=== PATIENT | female | born 1955 | race African-American/Black ===

== ENCOUNTER 2018-08-27 01:42 | Emergency (ER) | payer SELFPAY ==
[~2018-08-27] VITALS: Ht 172.7 cm; Wt 77.1 kg
[~2018-08-27 01:42] MED LIST: HCTZ
[2018-08-27] MEDS ORDERED: CEPH500C PO (02:02)
[2018-08-27 02:17] VITALS: BP 116/66
--- NOTE | 2018-08-27 02:34 | RAD ---
INDICATION: Ankle pain COMPARISON: None. IMPRESSION: Right ankle: 3 views obtained. There is a metallic density structure projecting over the soft tissues at the medial aspect of the distal leg. This could be a skin marker however if the patient does not have a skin marker at the site a BB within the region is possible. Callus formation at the distal fibula could be from an old fracture. There is a large amount of swelling seen within the soft tissues. Plantar calcaneal spur. Electronically signed by: Lawrence Sanon MD (08/27/2018 2:31 AM) [facility]
--- NOTE | 2018-08-27 04:36 | PHYS DOC ---
Past Medical History Past Medical History: Alcoholism, Hypertension, Other Additional Past Medical Histor: PTSD Past Surgical History: Appendectomy, Other Additional Past Surgical Histo: LEFT GREAT TOE AMPUTATION Alcohol Use: Heavy Drug Use: None Adult General Chief Complaint Chief Complaint: ANKLE PROBLEM [facility] HPI Patient is a 63 year old female brought in by ambulance she flagged down an ambulance she did drink alcohol she was complaining of ankle pain for the last several days she's had her ankles are swollen from walking so much no trauma that she remembers. Pain is moderate dull nonradiating right greater than left Review of Systems Review of Systems Constitutional: Denies fever or chills [] Eyes: Denies change in visual acuity, redness, or eye pain [] HENT: Denies nasal congestion or sore throat [] Respiratory: Denies cough or shortness of breath [] Cardiovascular: No additional information not addressed in HPI [] GI: Denies abdominal pain, nausea, vomiting, bloody stools or diarrhea [] : Denies dysuria or hematuria [] Musculoskeletal: Denies back pain or joint pain [] Integument: Denies rash or skin lesions [] Neurologic: Denies headache, focal weakness or sensory changes [] Endocrine: Denies polyuria or polydipsia [] All other systems were reviewed and found to be within normal limits, except as documented in this note. Allergies Allergies Allergies Coded Allergies Type Severity Reaction Last Updated Verified hydrocodone Allergy Mild Itching 03/26/18 Yes Physical Exam Physical Exam Constitutional: Well developed, well nourished, no acute distress, non-toxic appearance. [] HENT: Normocephalic, atraumatic, bilateral external ears normal, oropharynx moist, no oral exudates, nose normal. [] Eyes: PERRLA, EOMI, conjunctiva normal, no discharge. [] Neck: Normal range of motion, no tenderness, supple, no stridor. [] Pulmonary: Normal respiratory effort no increased work of breathing no obvious chest wall trauma Abdomen: Bowel sounds normal, soft, no tenderness, no masses, no pulsatile masses. [] Skin: Warm, dry, no erythema, no rash. [] Back: No tenderness, no CVA tenderness. [] Extremities: There is right greater than left ankle swelling 1-2+ mild erythema about the right ankle tender to palpation at the lateral malleolus there is some mild tenderness at the ATFL Neurologic: Alert and oriented X 3, normal motor function, normal sensory function, no focal deficits noted. []Mild slurred speech consistent with known alcohol Psychologic: Affect normal, judgement normal, mood normal. []Somewhat pressured speech but redirectable Current Patient Data Vital Signs Vital Signs Date Time Temp Pulse Resp B/P (MAP) Pulse Ox O2 Delivery O2 Flow Rate FiO2 08/27/18 02:17 84 18 116/66 (83) 99 Room Air 08/27/18 01:42 97.7 97.7 EKG EKG [] Radiology/Procedures Radiology/Procedures [] Impressions: Ankle x-ray no definite fracture was identified. Noted the possible foreign body this was distant to the site of her complaint which was more at the lateral malleolus area Course & Med Decision Making Course & Med Decision Making Pertinent Labs and Imaging studies reviewed. (See chart for details) []63-year-old female presenting with ankle pain. She has been walking a lot she was intoxicated possible cellulitis on examination clinically x-ray was negative for acute fracture. Patient was reassured and given a prescription for Keflex. Recommended ice and elevation and stay off feet as much as possible Dragon Disclaimer Dragon Disclaimer This electronic medical record was generated, in whole or in part, using a voice recognition dictation system. Departure Departure Impression: Primary Impression: Cellulitis Disposition: HOME, SELF-CARE Condition: STABLE Patient Instructions: Cellulitis, [id number] Scripts Cephalexin (CEPHALEXIN) 500 Mg Capsule 1 CAP PO QID, #40 CAP Prov: MAGDALENA HOBBS MD 08/27/18 MAGDALENA HOBBS MD Aug 27, 2018 04:35
== END 2018-08-27 02:34 | disposition home or self-care (01) ==
LOC: MERGE 01:42 → ER 01:42
DX: L03.115 Cellulitis of right lower limb (principal); R47.81 Slurred speech; F10.229 Alcohol dependence with intoxication, unspecified; Y90.9 Presence of alcohol in blood, level not specified; I10 Essential (primary) hypertension; Z90.89 Acquired absence of other organs; Z88.5 Allergy status to narcotic agent
CPT/HCPCS: 73610; 99284